=== PATIENT | male | born 1995 | race Two or more races ===

== ENCOUNTER 2018-11-18 05:51 | Emergency (ER) | payer MEDICAID ==
[~2018-11-18] VITALS: Ht 180.3 cm; Wt 64.4 kg
[2018-11-18 06:02] VITALS: Ht 180.3 cm; Wt 64.4 kg
[2018-11-18 09:00] VITALS: BP 126/86
== END 2018-11-18 09:00 | disposition home or self-care (01) ==
LOC: ED 05:51
DX: F41.9 Anxiety disorder, unspecified (principal)

== ENCOUNTER 2019-06-09 03:09 | Emergency (ER) | payer MEDICAID ==
[~2019-06-09] VITALS: Ht 180.3 cm; Wt 67.7 kg
[2019-06-09 05:10] VITALS: BP 108/53
== END 2019-06-09 05:10 | disposition home or self-care (01) ==
LOC: ED 03:09
DX: F41.9 Anxiety disorder, unspecified (principal)

== ENCOUNTER 2019-07-11 15:49 | Emergency (ER) | payer MEDICAID ==
[~2019-07-11] VITALS: Ht 180.3 cm; Wt 69.9 kg
[2019-07-11 15:56] VITALS: Ht 180.3 cm; Wt 69.9 kg
[2019-07-11 17:18] LABS: BASOPHIL % 0.4 % (0-2); PLATELET COUNT 231 x10^3mcL (130-400); RED CELL DISTRIBUTION WIDTH 12.5 % (11.5-14.5)
[2019-07-11 17:28] LABS: CALCIUM 8.4 mg/dL (8.5-10.1); CARBON DIOXIDE 29.1 mmol/L (21-32); CHLORIDE SERUM 101 mmol/L (98-107); CREATININE SERUM 0.8 mg/dL (0.7-1.3); GFR1 > 60 mL/min; GLUCOSE SERUM 97 mg/dL (74-106); SODIUM SERUM 140 mmol/L (136-145)
[2019-07-11 17:38] LABS: ALBUMIN 4.2 g/dL (3.4-5.0); ALKALINE PHOSPHATASE 67 U/L (46-116); ALT/SGPT 66 U/L (16-63); AST/SGOT 45 U/L (15-37); BILIRUBIN TOTAL 0.5 mg/dL (0.20-1.00)
[2019-07-11 17:40] LABS: CHOLESTEROL 222 mg/dL (<200)
[2019-07-11 18:04] VITALS: BP 129/74
[2019-07-11 18:04] LABS: AMPHETAMINE QUAL UR NONE DETECTED (See below)
== END 2019-07-11 18:04 | disposition home or self-care (01) ==
LOC: ED 15:49
PROVIDERS: Specialist
DX: F10.20 Alcohol dependence, uncomplicated (principal); K29.20 Alcoholic gastritis without bleeding; R74.0 Nonspecific elevation of levels of transaminase and lactic acid dehydrogenase [LDH]; F41.9 Anxiety disorder, unspecified; R11.10 Vomiting, unspecified
CPT/HCPCS: G0480; J2405; J7030

== ENCOUNTER 2019-08-05 13:32 | Emergency (ER) | payer MEDICAID ==
[2019-08-05 16:18] VITALS: BP 127/65
== END 2019-08-05 16:18 | disposition home or self-care (01) ==
LOC: ED 13:32
DX: R20.2 Paresthesia of skin (principal); F41.9 Anxiety disorder, unspecified; F10.10 Alcohol abuse, uncomplicated